=== PATIENT | male | born 1965 | race Caucasian/White ===

== ENCOUNTER 2016-06-29 15:00 | Emergency (ER) | payer OTHER ==
[2016-06-29] MEDS ORDERED: LANTUS100 UNITS/ SC (15:11)
[2016-06-29] MEDS ORDERED: HUMALOG MI100 UNITS1 SC (15:11)
[2016-06-29] MEDS ORDERED: TRILIPIX135 M1 PO ×2 (15:11→15:12)
[2016-06-29] MEDS ORDERED: ZOCOR40 M1 PO (15:11)
[2016-06-29] MEDS ORDERED: PERCOCET 5-3251 EACH PO (17:00)
== END 2016-06-29 17:06 ==
LOC: EDMED 15:00
PROC: 2W3LX1Z Immobilization of Right Lower Extremity using Splint (ICD-10-PCS; principal; 2016-06-29)
DX: S82.851A Displaced trimalleolar fracture of right lower leg, initial encounter for closed fracture (principal); E11.9 Type 2 diabetes mellitus without complications; E78.5 Hyperlipidemia, unspecified; Z79.4 Long term (current) use of insulin; Z79.899 Other long term (current) drug therapy; X50.1XXA Overexertion from prolonged static or awkward postures, initial encounter; Y93.01 Activity, walking, marching and hiking; Y92.89 Other specified places as the place of occurrence of the external cause; Y99.8 Other external cause status